=== PATIENT | female | born 1955 | race Hispanic/Latino ===

== ENCOUNTER 2018-04-30 12:47 | Emergency (ER) | payer MEDICAID, OTHER | END 2018-04-30 15:18 | disposition left against medical advice (07) | LOC: EDH 12:47 ==

== ENCOUNTER 2020-08-12 21:21 | Inpatient (IN) | payer OTHER ==
[~2020-08-12] VITALS: Ht 167.6 cm; Wt 74.8 kg
[2020-08-12] MEDS ORDERED: ONDANSETRON 4MG INJ ONE (21:41)
[2020-08-12] MEDS ORDERED: 0.9%NACL 1000ML 1,000 ML IV ONE (21:41)
[2020-08-12] MEDS ORDERED: KETOROLAC 30MG VIAL (30MG/ML) ONE (21:41)
[2020-08-12 21:45] LABS: BASOPHILS % (AUTO) 0.2 % (0.0-5.0); EOSINOPHILS % (AUTO) 2.5 % (0.0-8.0); LYMPHOCYTES % (AUTO) 16.5 % (21.0-51.0); MEAN CORPUSCULAR HEMOGLOBIN 31.6 pg (27.0-33.0); MEAN CORPUSCULAR HGB CONC 33.2 g/dL (32.0-36.0); MEAN CORPUSCULAR VOLUME 95.3 fL (79-99); MONOCYTES % (AUTO) 6.3 % (3.0-13.0); NEUTROPHILS % (AUTO) 74.3 % (40.0-77.0); PLATELET COUNT (AUTO) 280 K/uL (130-400); RED CELL DISTRIBUTION WIDTH 12.8 % (11.0-15.5); WHITE BLOOD COUNT (AUTO) 12.2 K/uL (4.8-10.8)
[2020-08-12 21:48] LABS: APPEARANCE,URINE Cloudy (CLEAR); BILIRUBIN,URINE Negative (NEGATIVE); COLOR,URINE Yellow (YELLOW); GLUCOSE, URINE (UA) Negative (NEGATIVE); KETONES,URINE Negative (NEGATIVE); LEUKOCYTE ESTERASE ,URINE Large (NEGATIVE); NITRATE,URINE Negative (NEGATIVE); OCCULT BLOOD,URINE Negative (NEGATIVE); PH,URINE 7.5 (5.0-8.0); PROTEIN,URINE Negative (NEGATIVE)
[2020-08-12 21:56] LABS: CREATININE 1.1 mg/dL (0.5-1.5); POTASSIUM 3.8 mmol/L (3.5-5.1)
[2020-08-12 22:02] LABS: ALBUMIN 4.1 g/dL (3.5-5.0); BILIRUBIN,TOTAL 0.6 mg/dL (0.2-1.0); TOTAL PROTEIN, SERUM 8.6 g/dL (6.0-8.3)
[2020-08-12 22:08] LABS: BACTERIA,URINE Moderate /HPF (None Seen)
[2020-08-12 22:09] LABS: MUCUS,URINE Few LPF (None Seen); SQUAMOUS EPITHELIAL CELL,UR Moderate /HPF (0-2)
[2020-08-12] MEDS ORDERED: ZOSYN 3.375GM+NS 50ML 50 ML IV ONE (22:30)
[2020-08-12] MEDS: LACTATED RINGERS 1000ML 1,000 ML IV SCH (23:45)
[2020-08-13] MEDS ORDERED: ZOLPIDEM TARTRATE 5 MG TAB PO PRN
[2020-08-13] MEDS ORDERED: ONDANSETRON 4MG INJ IV PRN
[2020-08-13] MEDS: CEFTRIAXONE 1G VIAL IVP SCH
[2020-08-13] MEDS ORDERED: MAG/ALUM/SIMETH 30 ML UDCUP PO PRN
[2020-08-13] MEDS ORDERED: DiphenhydrAMINE HCL 50 MG/ML VIAL IV PRN
[2020-08-13] MEDS ORDERED: NITROGLYCERIN 0.4 MG SL TAB SL PRN
[2020-08-13] MEDS ORDERED: DIPHENHYDRAMINE HCL 25 MG CAPSULE PO PRN
[2020-08-13] MEDS ORDERED: ACETAMINOPHEN 325 MG TAB PO PRN ×2
[2020-08-13] MEDS ORDERED: MORPHINE 2 MG SYG IV PRN
[2020-08-13] MEDS ORDERED: CEFTRIAXONE 1G VIAL ONE (00:09)
[2020-08-13 01:20] LABS: HEMOGLOBIN A1C 6.7 % (4.0-6.0)
[2020-08-13 02:20] VITALS: BP 167/90
[2020-08-13] MEDS: HYDROMORPHONE 1 MG INJ IV PRN ×2 (03:37→12:15)
[2020-08-13 03:44] LABS: BASOPHILS % (AUTO) 0.3 % (0.0-5.0); HEMATOCRIT 35.9 % (36-48); LYMPHOCYTES % (AUTO) 17.5 % (21.0-51.0); MEAN CORPUSCULAR HEMOGLOBIN 32.3 pg (27.0-33.0); NEUTROPHILS % (AUTO) 70.9 % (40.0-77.0); PLATELET COUNT (AUTO) 231 K/uL (130-400); RED BLOOD CELL COUNT(AUTO) 3.78 MIL/uL (4.00-5.50); RED CELL DISTRIBUTION WIDTH 12.9 % (11.0-15.5); WHITE BLOOD COUNT (AUTO) 8.7 K/uL (4.8-10.8)
[2020-08-13] MEDS: LACTATED RINGERS 1000ML 1,000 ML IV SCH ×2 (03:45→17:51)
[2020-08-13 03:58] VITALS: BP 139/78
[2020-08-13 04:11] LABS: ALBUMIN 3.3 g/dL (3.5-5.0); BILIRUBIN,TOTAL 0.6 mg/dL (0.2-1.0); POTASSIUM 3.9 mmol/L (3.5-5.1); TOTAL PROTEIN, SERUM 7.1 g/dL (6.0-8.3)
[2020-08-13 08:48] VITALS: BP 133/78
[2020-08-13] MEDS: FAMOTIDINE 20MG VIAL IV SCH ×2 (09:25→19:51)
[2020-08-13] MEDS: ENOXAPARIN SODIUM 30 MG/0.3 ML SQ SCH (09:25)
[2020-08-13 12:10] VITALS: BP 135/74
[2020-08-13 15:59] LABS: CHOLESTEROL 135 mg/dL (<200); HDL CHOLESTEROL 38 mg/dL (35-85); LDL DIRECT 81 mg/dL (0-99); TRIGLYCERIDES 135 mg/dL (30-200)
[2020-08-13 16:23] VITALS: BP 138/81
[2020-08-13] MEDS ORDERED: HYDROMORPHONE 0.5 MG SYG (0.5MG/0.5ML) ONE (19:45)
[2020-08-13 20:00] VITALS: BP 146/81
[2020-08-14] VITALS: BP 141/77
[2020-08-14] MEDS: CEFTRIAXONE 1G VIAL IVP SCH ×2 (03:16→23:39)
[2020-08-14] MEDS: LACTATED RINGERS 1000ML 1,000 ML IV SCH ×4 (03:16→23:39)
[2020-08-14 04:00] VITALS: BP 155/76
[2020-08-14 05:09] LABS: BASOPHILS % (AUTO) 0.4 % (0.0-5.0); EOSINOPHILS % (AUTO) 4.3 % (0.0-8.0); HEMATOCRIT 36.5 % (36-48); LYMPHOCYTES % (AUTO) 24.9 % (21.0-51.0); MEAN CORPUSCULAR HGB CONC 33.4 g/dL (32.0-36.0); MEAN CORPUSCULAR VOLUME 95.8 fL (79-99); MONOCYTES % (AUTO) 6.6 % (3.0-13.0); NEUTROPHILS % (AUTO) 63.5 % (40.0-77.0); PLATELET COUNT (AUTO) 226 K/uL (130-400); RED BLOOD CELL COUNT(AUTO) 3.81 MIL/uL (4.00-5.50); RED CELL DISTRIBUTION WIDTH 12.7 % (11.0-15.5)
[2020-08-14 05:46] LABS: ALBUMIN 3.2 g/dL (3.5-5.0); BILIRUBIN,TOTAL 0.4 mg/dL (0.2-1.0); CREATININE 0.9 mg/dL (0.5-1.5); POTASSIUM 3.8 mmol/L (3.5-5.1); TOTAL PROTEIN, SERUM 7.2 g/dL (6.0-8.3)
[2020-08-14 08:14] LABS: HEPATITIS A ANTIBODY IGM Negative (Negative); HEPATITIS B CORE IGM Negative (Negative); HEPATITIS Bs ANTIGEN SCREEN P Negative (Negative)
[2020-08-14 09:03] VITALS: BP 163/78
[2020-08-14] MEDS: FAMOTIDINE 20MG VIAL IV SCH ×2 (10:55→22:08)
[2020-08-14] MEDS: ENOXAPARIN SODIUM 30 MG/0.3 ML SQ SCH (10:55)
[2020-08-14 13:51] VITALS: BP 157/68
[2020-08-14 16:38] VITALS: BP 159/79
[2020-08-14 20:09] VITALS: BP 140/73
[2020-08-15] VITALS (7 sets, daily range): BP systolic 136–161; BP diastolic 65–84
[2020-08-15 05:56] LABS: BASOPHILS % (AUTO) 0.4 % (0.0-5.0); EOSINOPHILS % (AUTO) 7.1 % (0.0-8.0); HEMATOCRIT 38.3 % (36-48); LYMPHOCYTES % (AUTO) 25.4 % (21.0-51.0); MEAN CORPUSCULAR HEMOGLOBIN 31.6 pg (27.0-33.0); MEAN CORPUSCULAR HGB CONC 33.2 g/dL (32.0-36.0); MEAN CORPUSCULAR VOLUME 95.3 fL (79-99); MONOCYTES % (AUTO) 7.9 % (3.0-13.0); NEUTROPHILS % (AUTO) 58.9 % (40.0-77.0); PLATELET COUNT (AUTO) 227 K/uL (130-400); RED BLOOD CELL COUNT(AUTO) 4.02 MIL/uL (4.00-5.50); RED CELL DISTRIBUTION WIDTH 12.7 % (11.0-15.5); WHITE BLOOD COUNT (AUTO) 7.9 K/uL (4.8-10.8)
[2020-08-15 06:21] LABS: ALBUMIN 3.2 g/dL (3.5-5.0); BILIRUBIN,TOTAL 0.3 mg/dL (0.2-1.0); CREATININE 0.9 mg/dL (0.5-1.5); POTASSIUM 3.9 mmol/L (3.5-5.1); TOTAL PROTEIN, SERUM 7.2 g/dL (6.0-8.3)
[2020-08-15] MEDS: LACTATED RINGERS 1000ML 1,000 ML IV SCH ×2 (06:37→09:50)
[2020-08-15] MEDS: ENOXAPARIN SODIUM 30 MG/0.3 ML SQ SCH (09:50)
[2020-08-15] MEDS: FAMOTIDINE 20MG VIAL IV SCH ×2 (09:50→21:38)
[2020-08-16] MEDS: CEFTRIAXONE 1G VIAL IVP SCH (00:11)
[2020-08-16] MEDS: LACTATED RINGERS 1000ML 1,000 ML IV SCH ×3 (00:12→11:55)
[2020-08-16 04:28] VITALS: BP 142/69
[2020-08-16 06:00] LABS: BASOPHILS % (AUTO) 0.4 % (0.0-5.0); EOSINOPHILS % (AUTO) 8.7 % (0.0-8.0); HEMATOCRIT 39.4 % (36-48); LYMPHOCYTES % (AUTO) 26.4 % (21.0-51.0); MEAN CORPUSCULAR HEMOGLOBIN 31.6 pg (27.0-33.0); MEAN CORPUSCULAR HGB CONC 33.2 g/dL (32.0-36.0); MEAN CORPUSCULAR VOLUME 95.2 fL (79-99); MONOCYTES % (AUTO) 8.4 % (3.0-13.0); NEUTROPHILS % (AUTO) 55.8 % (40.0-77.0); PLATELET COUNT (AUTO) 242 K/uL (130-400); RED BLOOD CELL COUNT(AUTO) 4.14 MIL/uL (4.00-5.50); RED CELL DISTRIBUTION WIDTH 12.7 % (11.0-15.5); WHITE BLOOD COUNT (AUTO) 7.1 K/uL (4.8-10.8)
[2020-08-16 06:40] LABS: ALBUMIN 3.3 g/dL (3.5-5.0); BILIRUBIN,TOTAL 0.3 mg/dL (0.2-1.0); CREATININE 0.9 mg/dL (0.5-1.5); POTASSIUM 3.7 mmol/L (3.5-5.1); TOTAL PROTEIN, SERUM 7.5 g/dL (6.0-8.3)
[2020-08-16 08:00] VITALS: BP 153/87
[2020-08-16] MEDS: FAMOTIDINE 20MG VIAL IV SCH ×2 (09:45→21:48)
[2020-08-16] MEDS: POLYETHYLENE GLYCOL 3350 17 GM POWD.PACK PO SCH (09:45)
[2020-08-16] MEDS: ENOXAPARIN SODIUM 30 MG/0.3 ML SQ SCH (09:45)
[2020-08-16 12:00] VITALS: BP 155/90
[2020-08-16 16:00] VITALS: BP 145/87
[2020-08-16 19:56] VITALS: BP 158/88
[2020-08-16 23:26] VITALS: BP 165/78
[2020-08-17] MEDS: CEFTRIAXONE 1G VIAL IVP SCH (00:02)
[2020-08-17] MEDS: LACTATED RINGERS 1000ML 1,000 ML IV SCH ×2 (00:02→07:30)
[2020-08-17 03:59] VITALS: BP 133/75
[2020-08-17] MEDS: FAMOTIDINE 20MG VIAL IV SCH (08:29)
[2020-08-17 08:30] VITALS: BP 172/74
[2020-08-17] MEDS: POLYETHYLENE GLYCOL 3350 17 GM POWD.PACK PO SCH (08:30)
[2020-08-17] MEDS: ENOXAPARIN SODIUM 30 MG/0.3 ML SQ SCH (08:30)
[2020-08-17 12:37] VITALS: BP 140/51
== END 2020-08-17 16:00 | disposition home or self-care (01) | DRG 439 ==
LOC: EDH 21:21 → EDHIP 23:52 → 3BH 08-13 02:26
PROVIDERS: ADMIT Family Medicine; ATTEND Family Medicine
DX: K85.90 Acute pancreatitis without necrosis or infection, unspecified (principal); B17.9 Acute viral hepatitis, unspecified; N39.0 Urinary tract infection, site not specified; N17.9 Acute kidney failure, unspecified; E87.1 Hypo-osmolality and hyponatremia; E86.0 Dehydration; I10 Essential (primary) hypertension; Z90.49 Acquired absence of other specified parts of digestive tract; K57.90 Diverticulosis of intestine, part unspecified, without perforation or abscess without bleeding; Z20.822 Contact with and (suspected) exposure to COVID-19; Z88.2 Allergy status to sulfonamides; Z88.5 Allergy status to narcotic agent
CPT/HCPCS: 36415; 71045; 74176; 74181; 80053; 80061; 80074; 81001; 82150; 82948; 83036; 83690; 84484; 85025; 87088; 87426; 93005; 99291; G0378; J0696; J1170; J1650; J1885; J2405; J2543; J3490; J7030; J7120; U0003

== ENCOUNTER → 2020-09-29 | Outpatient (CLI) | payer OTHER | END | disposition home or self-care (01) | LOC: RAH 09:26 | PROVIDERS: ATTEND Internal Medicine Gastroenterology | DX: K21.9 Gastro-esophageal reflux disease without esophagitis (principal); K44.9 Diaphragmatic hernia without obstruction or gangrene | CPT/HCPCS: 74240 ==

== ENCOUNTER 2021-03-23 17:41 | Emergency (ER) | payer OTHER, MEDICAID ==
[~2021-03-23] VITALS: Ht 165.1 cm; Wt 59.9 kg
[2021-03-23 18:00] VITALS: BP 151/78
[2021-03-23] MEDS ORDERED: ALBUTEROL INHALER 90MCG/INH IH PRN (18:30)
[2021-03-23] MEDS ORDERED: GUAIFENESIN-DM 200/20 MG 10 ML PO ONE (18:30)
[2021-03-23] MEDS ORDERED: AMOX/CLAV 875/125MG TAB PO ONE ×2 (18:30→18:37)
[2021-03-23] MEDS ORDERED: GUAIFENESIN-DM 200/20 MG 10 ML ONE (18:37)
[2021-03-23] MEDS ORDERED: ALBUTEROL INHALER 90MCG/INH IH ONE (18:37)
[2021-03-23 18:45] LABS: APPEARANCE,URINE Clear (CLEAR); BILIRUBIN,URINE Negative (NEGATIVE); COLOR,URINE Yellow (YELLOW); GLUCOSE, URINE (UA) Negative (NEGATIVE); KETONES,URINE Negative (NEGATIVE); LEUKOCYTE ESTERASE ,URINE Moderate (NEGATIVE); NITRATE,URINE Negative (NEGATIVE); OCCULT BLOOD,URINE Negative (NEGATIVE); PH,URINE 7.5 (5.0-8.0); PROTEIN,URINE Negative (NEGATIVE)
[2021-03-23 19:00] LABS: BACTERIA,URINE Few /HPF (None Seen); MUCUS,URINE Few LPF (None Seen); RBC,URINE 0-1 /HPF (0-1); SQUAMOUS EPITHELIAL CELL,UR Few /HPF (0-2)
[2021-03-23] MEDS ORDERED: ALBUHFA IH (19:19)
[2021-03-23] MEDS ORDERED: AMOX-429 PO (19:19)
[2021-03-23] MEDS ORDERED: CEFTRIAXONE 1G VIAL IM ONE (19:30)
== END 2021-03-23 20:36 | disposition home or self-care (01) ==
LOC: EDH 17:41
DX: N39.0 Urinary tract infection, site not specified (principal); J40 Bronchitis, not specified as acute or chronic; Z20.822 Contact with and (suspected) exposure to COVID-19; E11.9 Type 2 diabetes mellitus without complications; I10 Essential (primary) hypertension; Z88.5 Allergy status to narcotic agent; Z79.899 Other long term (current) drug therapy
CPT/HCPCS: 71045; 81001; 87088; 87635; 96372; 99284; C9803; J0696

== ENCOUNTER 2021-04-02 17:59 | Emergency (ER) | payer OTHER, MEDICARE ==
[~2021-04-02] VITALS: Ht 165.1 cm; Wt 59.9 kg
[~2021-04-02 17:59] MED LIST: ALBUHFA IH; AMOX-429 PO
[2021-04-02 19:41] LABS: BASOPHILS % (AUTO) 0.1 % (0.0-5.0); EOSINOPHILS % (AUTO) 6.2 % (0.0-8.0); HEMATOCRIT 38.8 % (36-48); LYMPHOCYTES % (AUTO) 29.1 % (21.0-51.0); MEAN CORPUSCULAR HEMOGLOBIN 31.8 pg (27.0-33.0); MEAN CORPUSCULAR HGB CONC 33.5 g/dL (32.0-36.0); MEAN CORPUSCULAR VOLUME 94.9 fL (79-99); MONOCYTES % (AUTO) 8.4 % (3.0-13.0); NEUTROPHILS % (AUTO) 55.7 % (40.0-77.0); PLATELET COUNT (AUTO) 222 K/uL (130-400); RED BLOOD CELL COUNT(AUTO) 4.09 MIL/uL (4.00-5.50); RED CELL DISTRIBUTION WIDTH 13.1 % (11.0-15.5); WHITE BLOOD COUNT (AUTO) 7.6 K/uL (4.8-10.8)
[2021-04-02 19:48] VITALS: BP 131/81
[2021-04-02 20:06] LABS: CREATININE 0.8 mg/dL (0.5-1.5); POTASSIUM 3.6 mmol/L (3.5-5.1)
[2021-04-02 20:12] LABS: ALBUMIN 3.4 g/dL (3.5-5.0); BILIRUBIN,TOTAL 0.4 mg/dL (0.2-1.0); TOTAL PROTEIN, SERUM 7.6 g/dL (6.0-8.3)
[2021-04-02] MEDS ORDERED: D-ME118S47 PO (21:40)
[2021-04-02] MEDS ORDERED: CETI10CA5 PO (21:40)
[2021-04-02] MEDS ORDERED: GUAIFENESIN/DEXTROMETHORPHAN 1 EACH TAB.SR.12H PO ONE (22:00)
== END 2021-04-02 22:06 | disposition home or self-care (01) ==
LOC: EDH 17:59
DX: R10.9 Unspecified abdominal pain (principal); R05 Cough; R06.02 Shortness of breath; R53.83 Other fatigue; Z20.822 Contact with and (suspected) exposure to COVID-19; Z79.899 Other long term (current) drug therapy; Z88.5 Allergy status to narcotic agent
CPT/HCPCS: 36415; 71045; 80053; 83690; 83880; 85025; 87635; 87804 ×2; 99284; C9803

== ENCOUNTER 2021-07-05 09:38 | Emergency (ER) | payer OTHER, MEDICARE ==
[~2021-07-05] VITALS: Ht 165.1 cm; Wt 59.9 kg
[~2021-07-05 09:38] MED LIST changes: +CETI10CA5 PO; +D-ME118S47 PO
[2021-07-05] MEDS ORDERED: LIDOCAINE HCL 2% VISCOUS 15 ML UDCUP PO ONE (11:00)
[2021-07-05] MEDS ORDERED: PREDNISONE 20 MG TABLET PO ONE (11:00)
[2021-07-05] MEDS ORDERED: MAG/ALUM/SIMETH 30 ML UDCUP PO ONE (11:00)
[2021-07-05] MEDS ORDERED: DIPHENHYDRAMINE HCL 25 MG CAPSULE PO ONE (11:00)
[2021-07-05] MEDS ORDERED: ALBUTEROL 0.083% 2.5 MG/3 ML INH IH ONE (11:00)
[2021-07-05] MEDS ORDERED: ALBU8.5H8 IH (11:51)
[2021-07-05] MEDS ORDERED: NYST15PO4 TP (11:51)
[2021-07-05] MEDS ORDERED: PRED20TA3 PO (11:51)
[2021-07-05] MEDS ORDERED: BENZ-39 PO (11:51)
[2021-07-05 11:57] LABS: APPEARANCE,URINE Cloudy (CLEAR); BILIRUBIN,URINE Negative (NEGATIVE); COLOR,URINE Yellow (YELLOW); GLUCOSE, URINE (UA) Negative (NEGATIVE); KETONES,URINE Negative (NEGATIVE); LEUKOCYTE ESTERASE ,URINE Large (NEGATIVE); NITRATE,URINE Negative (NEGATIVE); OCCULT BLOOD,URINE Negative (NEGATIVE); PH,URINE 5.5 (5.0-8.0); PROTEIN,URINE Trace mg/dL (NEGATIVE)
[2021-07-05 12:17] LABS: BACTERIA,URINE Few /HPF (None Seen); RBC,URINE 0-1 /HPF (0-1); SQUAMOUS EPITHELIAL CELL,UR Rare /HPF (0-2); WBC,URINE 51-100 /HPF (0-1)
[2021-07-05 12:30] VITALS: BP 147/71
== END 2021-07-05 12:29 | disposition home or self-care (01) ==
LOC: EDH 09:38
DX: B37.49 Other urogenital candidiasis (principal); R05.9 Cough, unspecified; N39.3 Stress incontinence (female) (male); I10 Essential (primary) hypertension; J45.909 Unspecified asthma, uncomplicated; Z88.5 Allergy status to narcotic agent; Z79.52 Long term (current) use of systemic steroids; Z79.899 Other long term (current) drug therapy
CPT/HCPCS: 71045; 81001; 87077; 87088; 87186; 99284; Q0163

== ENCOUNTER 2021-07-19 13:03 | Emergency (ER) | payer OTHER, MEDICARE ==
[~2021-07-19] VITALS: Ht 165.1 cm; Wt 59.9 kg
[~2021-07-19 13:03] MED LIST changes: +ALBU8.5H8 IH; +BENZ-39 PO; +NYST15PO4 TP; +PRED20TA3 PO
[2021-07-19] MEDS ORDERED: ONDA4TAB4 PO (15:04)
[2021-07-19] MEDS ORDERED: BUDE90AE IH (15:04)
[2021-07-19] MEDS ORDERED: IBUP-2070 PO (15:04)
[2021-07-19] MEDS ORDERED: D-ME118S47 PO (15:04)
[2021-07-19 15:10] VITALS: BP 133/8
[2021-07-19] MEDS ORDERED: ONDANSETRON ODT 4MG TAB SL ONE (15:30)
[2021-07-19] MEDS ORDERED: ACETAMINOPHEN 500 MG TABLET PO ONE (15:30)
== END 2021-07-19 15:27 | disposition home or self-care (01) ==
LOC: EDH 13:03
DX: U07.1 COVID-19 (principal); I10 Essential (primary) hypertension; J45.909 Unspecified asthma, uncomplicated; Z79.1 Long term (current) use of non-steroidal anti-inflammatories (NSAID); Z79.51 Long term (current) use of inhaled steroids; Z79.52 Long term (current) use of systemic steroids; Z79.899 Other long term (current) drug therapy; Z88.5 Allergy status to narcotic agent
CPT/HCPCS: 87635; 87804 ×2; 99283; C9803

== ENCOUNTER 2021-10-24 16:17 | Emergency (ER) | payer OTHER, MEDICARE ==
[~2021-10-24] VITALS: Ht 157.5 cm; Wt 59.9 kg
[~2021-10-24 16:17] MED LIST changes: +BUDE90AE IH; +IBUP-2070 PO; +ONDA4TAB4 PO
[2021-10-24 16:21] VITALS: BP 142/71
[2021-10-24 17:15] LABS: BASOPHILS % (AUTO) 0.3 % (0.0-5.0); HEMATOCRIT 39.3 % (36-48); LYMPHOCYTES % (AUTO) 23.1 % (21.0-51.0); MEAN CORPUSCULAR HEMOGLOBIN 31.1 pg (27.0-33.0); MEAN CORPUSCULAR HGB CONC 32.6 g/dL (32.0-36.0); MEAN CORPUSCULAR VOLUME 95.4 fL (79-99); MONOCYTES % (AUTO) 6.6 % (3.0-13.0); NEUTROPHILS % (AUTO) 66.5 % (40.0-77.0); PLATELET COUNT (AUTO) 294 K/uL (130-400); RED BLOOD CELL COUNT(AUTO) 4.12 MIL/uL (4.00-5.50); RED CELL DISTRIBUTION WIDTH 12.9 % (11.0-15.5); WHITE BLOOD COUNT (AUTO) 13.1 K/uL (4.8-10.8)
[2021-10-24 17:17] LABS: APPEARANCE,URINE Clear (CLEAR); BILIRUBIN,URINE Negative (NEGATIVE); COLOR,URINE Yellow (YELLOW); GLUCOSE, URINE (UA) Negative (NEGATIVE); KETONES,URINE Negative (NEGATIVE); LEUKOCYTE ESTERASE ,URINE Moderate (NEGATIVE); NITRATE,URINE Negative (NEGATIVE); OCCULT BLOOD,URINE Negative (NEGATIVE); PH,URINE 5.5 (5.0-8.0); PROTEIN,URINE Negative (NEGATIVE); UROBILINOGEN,URINE 0.2 mg/dL (0.2-1.0)
[2021-10-24 17:23] LABS: CREATININE 0.9 mg/dL (0.5-1.5); POTASSIUM 3.8 mmol/L (3.5-5.1)
[2021-10-24 17:28] LABS: ALBUMIN 3.6 g/dL (3.5-5.0); BILIRUBIN,TOTAL 0.3 mg/dL (0.2-1.0); TOTAL PROTEIN, SERUM 8.3 g/dL (6.0-8.3)
[2021-10-24 17:31] LABS: BACTERIA,URINE Few /HPF (None Seen); MUCUS,URINE Rare LPF (None Seen); RBC,URINE 0-1 /HPF (0-1); SQUAMOUS EPITHELIAL CELL,UR 0-2 /HPF (0-2)
[2021-10-24] MEDS ORDERED: CEPH500B PO (18:49)
[2021-10-24] MEDS ORDERED: BENZ-39 PO (18:49)
[2021-10-24] MEDS ORDERED: OMEP20TA20 PO (18:49)
== END 2021-10-24 19:21 | disposition home or self-care (01) ==
LOC: EDH 16:17
DX: R05.3 Chronic cough (principal); N39.0 Urinary tract infection, site not specified; J45.909 Unspecified asthma, uncomplicated; I10 Essential (primary) hypertension; Z88.5 Allergy status to narcotic agent; Z79.899 Other long term (current) drug therapy; Z98.890 Other specified postprocedural states
CPT/HCPCS: 36415; 71045; 80053; 81001; 85025; 87088

== ENCOUNTER 2022-08-08 08:55 | Emergency (ER) | payer OTHER, MEDICARE ==
[~2022-08-08] VITALS: Ht 162.6 cm; Wt 59.0 kg
[~2022-08-08 08:55] MED LIST changes: +CEPH500B PO; +OMEP20TA20 PO
[2022-08-08 08:57] VITALS: BP 142/92
[2022-08-08 09:25] LABS: APPEARANCE,URINE CLOUDY (CLEAR); BILIRUBIN,URINE NEGATIVE (NEGATIVE); COLOR,URINE LIGHT-YELLOW (YELLOW); GLUCOSE, URINE (UA) NEGATIVE (NEGATIVE); KETONES,URINE NEGATIVE (NEGATIVE); LEUKOCYTE ESTERASE ,URINE 500 Leu/uL (NEGATIVE); NITRATE,URINE NEGATIVE (NEGATIVE); OCCULT BLOOD,URINE NEGATIVE (NEGATIVE); PROTEIN,URINE NEGATIVE (NEGATIVE); UROBILINOGEN,URINE 0.2 mg/dL (0.2-1.0)
[2022-08-08 09:30] LABS: BACTERIA,URINE RARE /HPF (None Seen); MUCUS,URINE RARE LPF (None Seen); SQUAMOUS EPITHELIAL CELL,UR RARE /HPF (0-2)
[2022-08-08] MEDS ORDERED: KETOROLAC 60 MG VIAL (30MG/ML) IM ONE (09:30)
[2022-08-08] MEDS ORDERED: CEPH500C2 PO (10:15)
[2022-08-08] MEDS ORDERED: LIDOCAINE HCL 1% 20 ML VIAL ONE (10:21)
[2022-08-08] MEDS ORDERED: CEFTRIAXONE 1G VIAL IM SCH (10:30)
== END 2022-08-08 10:29 | disposition home or self-care (01) ==
LOC: EDH 08:55
DX: N39.0 Urinary tract infection, site not specified (principal); J45.909 Unspecified asthma, uncomplicated; I10 Essential (primary) hypertension; Z79.1 Long term (current) use of non-steroidal anti-inflammatories (NSAID); Z79.51 Long term (current) use of inhaled steroids; Z79.52 Long term (current) use of systemic steroids; Z88.5 Allergy status to narcotic agent
CPT/HCPCS: 99284; 87088; 81001; 96372 ×2; J0696; J1885

== ENCOUNTER 2023-01-22 12:44 | Emergency (ER) | payer OTHER, MEDICARE ==
[~2023-01-22] VITALS: Ht 165.1 cm; Wt 13.6 kg
[~2023-01-22 12:44] MED LIST changes: +CEPH500C2 PO
[2023-01-22 12:46] VITALS: BP 165/89
[2023-01-22 13:44] LABS: APPEARANCE,URINE CLEAR (CLEAR); BILIRUBIN,URINE NEGATIVE (NEGATIVE); COLOR,URINE LIGHT-YELLOW (YELLOW); GLUCOSE, URINE (UA) NEGATIVE (NEGATIVE); KETONES,URINE NEGATIVE (NEGATIVE); LEUKOCYTE ESTERASE ,URINE 25 Leu/uL (NEGATIVE); NITRATE,URINE NEGATIVE (NEGATIVE); OCCULT BLOOD,URINE NEGATIVE (NEGATIVE); PROTEIN,URINE NEGATIVE (NEGATIVE); UROBILINOGEN,URINE 0.2 mg/dL (0.2-1.0)
[2023-01-22 13:47] LABS: MUCUS,URINE RARE LPF (None Seen); SQUAMOUS EPITHELIAL CELL,UR RARE /HPF (0-2)
[2023-01-22] MEDS ORDERED: CLOT45CR62 VG (13:54)
[2023-01-22] MEDS ORDERED: FLUC150T PO (13:54)
== END 2023-01-22 14:20 | disposition home or self-care (01) ==
LOC: EDH 12:44
DX: B37.49 Other urogenital candidiasis (principal); Z79.51 Long term (current) use of inhaled steroids; Z79.52 Long term (current) use of systemic steroids; Z79.899 Other long term (current) drug therapy; Z88.5 Allergy status to narcotic agent
CPT/HCPCS: 81001

== ENCOUNTER 2023-11-17 14:55 | Emergency (ER) | payer OTHER, MEDICARE ==
[~2023-11-17] VITALS: Ht 165.1 cm; Wt 61.7 kg
[~2023-11-17 14:55] MED LIST changes: +BROM118S48 PO; +CLOT45CR62 VG; -D-ME118S47 PO; +FLUC150T PO
[2023-11-17 16:00] LABS: BASOPHILS # (AUTO) 0.03 K/uL (0.00-0.20); BASOPHILS % (AUTO) 0.3 % (0.0-5.0); EOSINOPHILS # (AUTO) 0.36 K/uL (0.00-0.70); EOSINOPHILS % (AUTO) 3.2 % (0.0-8.0); HEMATOCRIT 39.3 % (36-48); IMMATURE GRANULOCYTE ABSOLUTE 0.06 K/uL (0-1); LYMPHOCYTES # (AUTO) 2.2 K/uL (1.0-4.8); LYMPHOCYTES % (AUTO) 19.3 % (21.0-51.0); MEAN CORPUSCULAR HEMOGLOBIN 32.4 pg (27.0-33.0); MEAN CORPUSCULAR HGB CONC 34.1 g/dL (32.0-36.0); MEAN CORPUSCULAR VOLUME 95.2 fL (79-99); MONOCYTES # (AUTO) 0.7 K/uL (0.1-1.0); MONOCYTES % (AUTO) 6.5 % (3.0-13.0); NEUTROPHILS # (AUTO) 7.9 K/uL (1.8-7.7); NEUTROPHILS % (AUTO) 70.2 % (40.0-77.0); PLATELET COUNT (AUTO) 254 K/uL (130-400); RED BLOOD CELL COUNT(AUTO) 4.13 MIL/uL (4.00-5.50); WHITE BLOOD COUNT (AUTO) 11.2 K/uL (4.8-10.8)
[2023-11-17 16:10] LABS: APPEARANCE,URINE CLEAR (CLEAR); BILIRUBIN,URINE NEGATIVE (NEGATIVE); COLOR,URINE LIGHT-YELLOW (YELLOW); GLUCOSE, URINE (UA) 500 mg/dL (NEGATIVE); KETONES,URINE NEGATIVE (NEGATIVE); LEUKOCYTE ESTERASE ,URINE 500 Leu/uL (NEGATIVE); NITRATE,URINE NEGATIVE (NEGATIVE); OCCULT BLOOD,URINE NEGATIVE (NEGATIVE); PROTEIN,URINE NEGATIVE (NEGATIVE); UROBILINOGEN,URINE 0.2 mg/dL (0.2-1.0)
[2023-11-17 16:11] LABS: POTASSIUM 3.7 mmol/L (3.5-5.1)
[2023-11-17 16:22] LABS: ADD UA MICROSCOPIC YES
[2023-11-17 16:22] LABS: ALBUMIN 3.6 g/dL (3.5-5.0); BILIRUBIN,TOTAL 0.5 mg/dL (0.2-1.0); TOTAL PROTEIN, SERUM 7.6 g/dL (6.0-8.3)
[2023-11-17 16:38] LABS: BACTERIA,URINE MOD /HPF (None Seen); MUCUS,URINE RARE LPF (None Seen); RENAL EPITHELIAL CELLS,URINE RARE /HPF (None Seen); SQUAMOUS EPITHELIAL CELL,UR FEW /HPF (0-2); WBC,URINE 51-100 /HPF (0-1)
[2023-11-17] MEDS ORDERED: IOHEXOL 350 MG/ML 100ML INFUS..BTL IV ONE (16:55)
[2023-11-17] MEDS ORDERED: OMEP40CA21 PO (18:19)
[2023-11-17 19:10] VITALS: BP 116/72; PULSE 68; RESP 18; O2SAT 97
== END 2023-11-17 19:34 | disposition home or self-care (01) ==
LOC: EDH 14:55
DX: K29.70 Gastritis, unspecified, without bleeding (principal); Z79.51 Long term (current) use of inhaled steroids; Z79.52 Long term (current) use of systemic steroids; Z79.899 Other long term (current) drug therapy; Z88.5 Allergy status to narcotic agent
CPT/HCPCS: 99285; 74177; 82550; 84484; 80053; 83690; 85025; 87077; 87088; 87186; 81001; 36415; Q9967

== ENCOUNTER 2024-06-24 08:42 | Emergency (ER) | payer MEDICARE ==
[~2024-06-24] VITALS: Ht 165.1 cm; Wt 59.0 kg
[~2024-06-24 08:42] MED LIST changes: -ALBUHFA IH; -AMOX-429 PO; +ASPI-1005 PO; +ATOR20TA65 PO; -BROM118S48 PO; -BUDE90AE IH; +BUDE90AE3 IH; -CEPH500B PO; -CEPH500C2 PO; -CETI10CA5 PO; +CLOP-31 PO; -FLUC150T PO; -IBUP-2070 PO; -NYST15PO4 TP; -OMEP20TA20 PO; +OMEP40CA21 PO; -ONDA4TAB4 PO; -PRED20TA3 PO
[2024-06-24 08:43] VITALS: BP 169/78; PULSE 90; RESP 16; TEMP 97.9
--- NOTE | 2024-06-24 08:59 | NUR ---
PT JUST NOW PLACED IN MY HALLWAY D
[2024-06-24] MEDS ORDERED: AMOX500T2 PO (09:18)
--- NOTE | 2024-06-24 09:19 | ERN ---
ED Note History of Present Illness Stated Complaint: RIGHT EAR PAIN Chief Complaint: Earache Time Seen by MD: 08:50 Dictation: Patient is a 69-year-old female with a history type 2 diabetes, GERD, hypertension, arthritis and sinusitis who presents to the ED for right ear pain. She states her ear pain started on Monday and worsened on Monday after stress due to a in the family. Patient denies any fevers, chills, nausea, vomiting, cough or chest pain. Patient denies any difficulty swallowing or sore throat Patient admits to having a slight frontal right-sided headache. She has been taking ibuprofen that is helped relieve ear pain and headache. Allergies: Coded Allergies: codeine (Verified Allergy, Unknown, 08/13/20) Uncoded Allergies: CODEINE SULFATE (Adverse Reaction, Intermediate, UPSET STOMACH, DIZZINESS, 08/13/20) Home Meds Active Scripts Amoxicillin (Amoxicillin) 500 Mg Tablet, 1 TAB PO TID for 10 Days, #30 TAB 0 Refills Prov:JOSELITO MCCLAIN MD 06/24/24 Aspirin (ASPIRIN 81MG CHEW TAB) 81 Mg Tab.chew, 81 MG PO DAILY, #30 TAB.CHEW 0 Refills Prov:FLORIAN SANDERS AGPCSANA 12/15/23 Atorvastatin Calcium (Atorvastatin Calcium) 20 Mg Tablet, 20 MG PO HS, #30 TAB 0 Refills Prov:FLORIAN SANDERS 12/15/23 Clopidogrel Bisulfate (Plavix) 75 Mg Tablet, 75 MG PO DAILY, #30 TAB 0 Refills Prov:FLORIAN SANDERS AGSANA 12/15/23 Omeprazole (Omeprazole) 40 Mg Capsule.dr, 40 MG PO DAILY for 30 Days, #30 CAP Prov:JESENIA HUBER DO 11/17/23 Clotrimazole (Clotrimazole) 45 Gm Cream.appl, 45 GM VG BID for 7 Days, #1 TUBE Prov:CORINA RICH NP 01/22/23 Benzonatate (Tessalon Perles) 100 Mg Cap, 100 MG PO TID, #15 CAP Prov:ROBERTO HENRY 10/24/21 Budesonide (Pulmicort Flexhaler) 90 Mcg Aer.pow.ba, 90 MCG IH BID for 7 Days, #1 INHALER Prov:GIO GLOVER MD 07/19/21 Albuterol Sulfate (Proair Hfa) 8.5 Gm Hfa.aer.ad, 2 PUFF IH Q4HPRN, #1 INHALER 0 Refills Prov:SUMMERLAKEISHA ART MD 07/05/21 Past Medical History Past Medical History: Arthritis, Diabetes-Type II, GERD, Hypertension, Migraines, Sinusitis Additional Past Medical Hx: PRE DM Surgical History: None Surgical History Other: SINUS, HEADACHES Family History: Negative Social History: Negative, Lives with family History: Not Applicable Review of System Dictation Constitutional-no chills, weight loss/gain, fever Eyes-no injury, pain, redness and discharge ENT-no injury, swelling. Pain in right ear. Cardiovascular no chest pain, palpitations, edema Respiratory no shortness of breath, cough, wheezing Abdomen/GI-no abdominal pain, diarrhea, constipation, vomiting, nausea Back no injury and pain Genitourinary no injury, bleeding and discharge Musculoskeletal/extremities no injury, deformity Skin no rash, discoloration Neuro-no weakness, numbness, tingling, seizures, tremors. Right frontal headache Psych-no suicidal ideation, homicidal ideation, hallucinations, depression, anxiety, memory loss Initial Vital Sign VS Vital Signs Date Time Temp Pulse Resp B/P (MAP) Pulse Ox O2 Delivery O2 Flow Rate FiO2 06/24/24 08:43 97.9 90 16 169/78 99 Room Air 0 Physical Exam Dictation General-patient is awake alert and oriented Head/neck-normocephalic, atraumatic Ears- TM hyperemic Eyes-PERRL, EOMI, vision at baseline Neck-trachea midline, supple, no nuchal rigidity Cardiovascular-RRR, normal S1/S2, no MRG is, no JVD Respiratory-no distress, wheezing, rales, rhonchi Abdomen-no tenderness, guarding, soft, nondistended Skin warm, dry, normal turgor, no rash Musculoskeletal/extremities pulses equal, no cyanosis Neuro-COA X 4, GCS 15, strength 5/5, CN 2-12 intact Psych-normal behavior, mood and affect normal ED Course ED Course Vital Signs Date Time Temp Pulse Resp B/P (MAP) Pulse Ox O2 Delivery O2 Flow Rate FiO2 06/24/24 08:43 97.9 90 16 169/78 99 Room Air 0 Medical Decision Making MDM MDM INITIAL IMPRESSION Initial history and physical concerning for otitis media Contributing medical problems: I have reviewed the triage nursing notes and vital signs. Initial plan: DATA REVIEW I have reviewed additional NN, repeat VS, and monitoring where indicated. Heart rate, blood pressure, and O2 saturation are acceptable. ED COURSE Interventions: None Reassessment: DISPOSITION Final diagnostic impression: Otitis media I discussed my findings, clinical impression and treatment recommendations with the patient. My final plan for disposition was made based upon -mild risk of complications and potential morbidity of the patient's condition. -Discussion with the patient regarding management options. Patient will be discharged on antibiotic treatment DX & DISP Disposition: Discharge Departure Impression: Primary Impression: Otitis media Additional Impression: Ear pain, right Condition: Stable Scripts Amoxicillin (Amoxicillin) 500 Mg Tablet 1 TAB PO TID for 10 Days, #30 TAB 0 Refills Prov: JOSELITO MCCLAIN MD 06/24/24 Additional Instructions: Take antibiotics as directed. Take [id number] pain medication like acetaminophen or ibuprofen as directed. Apply a warm, moist. Washcloth to your ears rest and avoid taking slight swallow your still in pain. Contact your doctor if you experience new or increasing ear pain, new or increasing pus or blood draining from the ear, a fever with a stiff neck or severe headache, new symptoms such as hearing problems. FOLLOW-UP WITH PRIMARY CARE PROVIDER IN 1 TO 2 DAYS. TAKE MEDICATIONS DIRECTED HERE IN THE EMERGENCY ROOM. OKAY TO CONTINUE HOME MEDICATIONS UNLESS OTHERWISE DISCUSSED DURING YOUR VISIT IN THE EMERGENCY ROOM TODAY. RETURN TO YOUR NEAREST EMERGENCY ROOM IF SYMPTOMS WORSEN OR IF THERE IS NO IMPROVEMENT. CALL 911 IF YOU NEED IMMEDIATE ASSISTANCE. TAKE TYLENOL [id number] NEEDED AND IF NO CONTRAINDICATIONS ARE PRESENT. INCREASE ORAL HYDRATION. A WOUND CULTURE OR URINE CULTURE WAS ORDERED HERE IN THE EMERGENCY ROOM DEPARTMENT PLEASE FOLLOW-UP WITH PRIMARY CARE PROVIDER AND ADVISE THEM TO GET REPEAT PORTS FROM OUR FACILITY. IF YOU HAD ANY ANGELA WRAP/SPLINTS THAT WERE APPLIED HERE, PLEASE DO NOT REMOVE THEM UNTIL YOU SEE YOUR PRIMARY CARE OR SPECIALTY. Referrals: SHIRLEY WALDRON MD (PCP) Time of Disposition: 09:14 I have reviewed I have reviewed the case I was present and participated in the care of this patient alongside the resident physician. I have reviewed and personally made and improve the management plan that is documented in the note by myself or the resident physician. I acknowledge full responsibility for the patient's management plan. I have examined patient JOSELITO MCCLAIN MD Jun 24, 2024 09:19 MIKE JUDD MD Jun 24, 2024 18:15
== END 2024-06-24 09:41 | disposition home or self-care (01) ==
LOC: EDH 08:42
DX: H66.91 Otitis media, unspecified, right ear (principal); H92.01 Otalgia, right ear; E11.9 Type 2 diabetes mellitus without complications; I10 Essential (primary) hypertension; K21.9 Gastro-esophageal reflux disease without esophagitis; M19.90 Unspecified osteoarthritis, unspecified site; Z79.02 Long term (current) use of antithrombotics/antiplatelets; Z79.51 Long term (current) use of inhaled steroids; Z79.82 Long term (current) use of aspirin; Z79.899 Other long term (current) drug therapy; Z88.5 Allergy status to narcotic agent
CPT/HCPCS: 99283

== ENCOUNTER 2024-09-17 13:04 | Emergency (ER) | payer MEDICARE ==
[~2024-09-17] VITALS: Ht 167.6 cm; Wt 62.1 kg
[~2024-09-17 13:04] MED LIST changes: +AMOX500T2 PO
--- NOTE | 2024-09-17 14:00 | ERN ---
ED Note History of Present Illness Stated Complaint: VAGINAL BLEEDING Chief Complaint: Vaginal Problems/Bleeding Time Seen by MD: 13:07 Dictation: HISTORY OF PRESENT ILLNESS: 69-year-old female with past medical history of diabetes, hypertension, GERD not on any regular medications presented to ED with complaints of vaginal bleeding and pelvic pain for past 2 days. As per the patient vaginal bleed started suddenly, nontraumatic, staining the underpants with no clots. She also complains of cramping like back pain radiating to the groin region 7/10 intensity. She compares the pain to period pains. She appears anxious. She also complains of mild dysuria and random chest pains. She underwent tubal ligation in 2003 or 2004 and is unsure if her uterus have been removed or not. She denies fever, nausea, vomiting, shortness of breath, changes in vision, headache or change in bowel habits. Allergies: Coded Allergies: codeine (Verified Allergy, Unknown, 08/13/20) Uncoded Allergies: CODEINE SULFATE (Adverse Reaction, Intermediate, UPSET STOMACH, DIZZINESS, 08/13/20) Home Meds Active Scripts Amoxicillin (Amoxicillin) 500 Mg Tablet, 1 TAB PO TID for 10 Days, #30 TAB 0 Refills Prov:JOSELITO MCCLAIN MD 06/24/24 Aspirin (ASPIRIN 81MG CHEW TAB) 81 Mg Tab.chew, 81 MG PO DAILY, #30 TAB.CHEW 0 Refills Prov:FLORIAN SANDERS 12/15/23 Atorvastatin Calcium (Atorvastatin Calcium) 20 Mg Tablet, 20 MG PO HS, #30 TAB 0 Refills Prov:FLORIAN SANDERS 12/15/23 Clopidogrel Bisulfate (Plavix) 75 Mg Tablet, 75 MG PO DAILY, #30 TAB 0 Refills Prov:FLORIAN SANDERS 12/15/23 Omeprazole (Omeprazole) 40 Mg Capsule.dr, 40 MG PO DAILY for 30 Days, #30 CAP Prov:JESENIA HUBER DO 11/17/23 Clotrimazole (Clotrimazole) 45 Gm Cream.appl, 45 GM VG BID for 7 Days, #1 TUBE Prov:CORINA RICH [employer] PIP[employer] ASSEMBLER 01/22/23 Benzonatate (Tessalon Perles) 100 Mg Cap, 100 MG PO TID, #15 CAP Prov:ROBERTO HENRYP 10/24/21 Budesonide (Pulmicort Flexhaler) 90 Mcg Aer.pow.ba, 90 MCG IH BID for 7 Days, #1 INHALER Prov:GIO GLOVER MD 07/19/21 Albuterol Sulfate (Proair Hfa) 8.5 Gm Hfa.aer.ad, 2 PUFF IH Q4HPRN, #1 INHALER 0 Refills Prov:LAKEISHA CARBAJAL MD 07/05/21 Past Medical History Past Medical History: Arthritis, Diabetes-Type II, GERD, Hypertension, Migraines, Sinusitis Additional Past Medical Hx: PRE DM Surgical History: None Surgical History Other: SINUS, HEADACHES Family History: Negative Social History: Negative, Lives with family History: Not Applicable Review of System Dictation REVIEW OF SYSTEMS Positive for bleeding per vagina and abdominal cramps CONSTITUTIONAL: Denies fevers, chills, or night sweats. No unintentional weight loss reported. ENT: No hearing loss, otalgia, otorrhea, rhinitis, rhinorrhea, hoarseness, or sore throat. CARDIOVASCULAR: Denies any exertional angina, dyspnea on exertion, orthopnea, paroxysmal nocturnal dyspnea, palpitations claudication. PULMONARY: Denies any shortness of breath, cough, phlegm / sputum, hemoptysis, pleuritic chest pain. SLEEP: Denies morning headaches, daytime somnolence or napping. Denies difficulty falling asleep, staying asleep, waking from sleep. Denies knowledge of snoring. GASTROINTESTINAL: Denies any type of dysphagia to either liquids or solids. Denies nausea, vomiting, abdominal pain, diarrhea, constipation, blood in stools . NEUROLOGICAL: Denies headache, motor weakness, sensory deficit, vertigo / spinning sensation, gait abnormalities, or tremors. GENITOURINARY: Denies frequency, urgency, nocturia, hematuria or incontinence, low urinary stream, straining to void, urinary intermittency or hesitancy ENDOCRINOLOGY: Denies polyuria, polydipsia, polyphagia or heat / cold intolerance. HEMATOLOGY: Denies thrombophilia / previous clots, or coagulopathy / bleeding disorders. ONCOLOGIC: Denies personal history of malignancy. DERMATOLOGIC: Denies rashes or pruritus. PSYCHIATRIC: Denies any suicidal or homicidal ideation. Denies hallucinations. Initial Vital Sign VS Vital Signs Date Time Temp Pulse Resp B/P (MAP) Pulse Ox O2 Delivery O2 Flow Rate FiO2 09/17/24 13:06 97.3 70 20 196/91 99 0 Physical Exam Dictation PHYSICAL EXAM GENERAL APPEARANCE: Anxious, Well nourished . Awake and alert. Oriented to time, place and person. No acute cardiopulmonary distress. HEENT: Head normocephalic , atraumatic. Sclera anicteric . Pupils are round and reactive. Extraocular movements intact . No conjunctival injection. No nasal congestion. No throat congestion .Oral mucosa moist. NECK: Supple. No JVD. No thyromegaly. No submental, submandibular, pre-/postauricular, occipital or supraclavicular lymphadenopathy. No carotid bruits. LUNGS: Clear to auscultation bilaterally . No rales, rhonchi or any wheezing. CARDIOVASCULAR: Regular rate and rhythm. S1 and S2 normal. No rubs, murmurs or gallops. ABDOMEN: Soft, generalized tenderness and nondistended. There is no rebound tenderness, voluntary guarding, or rigidity. No hepatosplenomegaly. Bowel sounds increased.. NEUROLOGICAL: Cranial nerves II-XII grossly intact. Motor is 5/5 in bilateral upper and lower extremities . No sensory deficits. EXTREMITIES: No edema, No cyanosis , No clubbing. Good capillary refill. SKIN: No skin breakdown. No rashes or lesions . PSYCHIATRY: Normal affect .No auditory or visual hallucinations. Normal speech. No dysarthria. Results (Laboratory/Radiology) Laboratory/Radiology Laboratory Tests Test 09/17/24 16:21 White Blood Count 10.1 K/uL (4.8-10.8) Red Blood Count 4.38 MIL/uL (4.00-5.50) Hemoglobin 14.0 g/dL (12.0-16.0) Hematocrit 41.8 % (36-48) Mean Corpuscular Volume 95.4 fL (79-99) Mean Corpuscular Hemoglobin 32.0 pg (27.0-33.0) Mean Corpuscular Hemoglobin Concent 33.5 g/dL (32.0-36.0) Red Cell Distribution Width 13.0 % (11.0-15.5) Platelet Count 260 K/uL (130-400) Mean Platelet Volume 11.1 fL (7.5-10.5) H Immature Granulocyte % (Auto) 0.4 % (0-1) Neutrophils (%) (Auto) 70.0 % (40.0-77.0) Lymphocytes (%) (Auto) 21.0 % (21.0-51.0) Monocytes (%) (Auto) 4.5 % (3.0-13.0) Eosinophils (%) (Auto) 3.9 % (0.0-8.0) Basophils (%) (Auto) 0.2 % (0.0-5.0) Neutrophils # (Auto) 7.0 K/uL (1.8-7.7) Lymphocytes # (Auto) 2.1 K/uL (1.0-4.8) Monocytes # (Auto) 0.5 K/uL (0.1-1.0) Eosinophils # (Auto) 0.39 K/uL (0.00-0.70) Basophils # (Auto) 0.02 K/uL (0.00-0.20) Absolute Immature Granulocyte (auto 0.04 K/uL (0-1) Nucleated Red Blood Cells 0.0 % (0.0-0.19) Prothrombin Time 10.3 SEC (9.6-11.6) Prothromb Time International Ratio 0.97 (0.85-1.15) Activated Partial Thromboplast Time 24.8 SEC (26.3-35.5) L Sodium Level 139 mmol/L (136-145) Potassium Level 4.0 mmol/L (3.5-5.1) Chloride Level 103 mmol/L (101-111) Carbon Dioxide Level 31 mmol/L (21-32) Blood Urea Nitrogen 11 mg/dL (7-18) Creatinine 0.7 mg/dL (0.5-1.0) Glomerular Filtration Rate Calc 93 mL/min (>90) Random Glucose 122 mg/dL (70-105) H Lactic Acid Level 0.9 mmol/L (0.8-2.5) Total Calcium 9.2 mg/dL (8.5-10.1) Total Bilirubin 0.4 mg/dL (0.2-1.0) Direct Bilirubin 0.1 mg/dL (0.0-0.3) Aspartate Amino Transf (AST/SGOT) 24 U/L (10-37) Alanine Aminotransferase (ALT/SGPT) 29 U/L (12-78) Alkaline Phosphatase 104 U/L (50-136) Troponin I High Sensitivity 4 ng/L (4-50) Total Protein 8.3 g/dL (6.0-8.3) Albumin 4.0 g/dL (3.5-5.0) Lipase 37 U/L (16-77) Thyroid Stimulating Hormone (TSH) 3.81 uIU/mL (0.36-3.74) H CT Scan Comment: PROCEDURE: ABD PELWWO - CT ABDOMEN/PELVIS W/WO CONTRAS INDICATION: Postmenopausal vaginal bleeding, abdominal pain TECHNIQUE: Routine transaxial images at 5 mm slice thickness were obtained prior to the administration of contrast material through the abdomen only, and after the intravenous infusion of 75 mL of Omnipaque 350 through the abdomen and pelvis without adverse effects. Delayed images of the abdomen and pelvis were also obtained. Coronal and sagittal reformatted imaging acquired for interpretation. CT was performed with one or more of the following dose reduction techniques: Automated exposure control, adjustment of the mA and/or kV according to patient size, or use of iterative reconstruction technique. COMPARISON: 11/17/2023 FINDINGS: ABDOMEN: Heart size is normal. Visible lung bases are clear. The liver is normal in size and smooth in contour without lesions or biliary duct dilation. The spleen is normal in size without lesions. The gallbladder appears normal. The pancreas appears normal without pancreatic duct dilation. The adrenal glands appear normal. Small simple right renal cyst. Left kidney appears normal. Cortical nephrograms are symmetric and normal in appearance bilaterally. No significant abdominal, retrocrural or retroperitoneal adenopathy noted.No evidence for intra-abdominal free air or organized fluid collection. No aortic aneurysmal dilation or dissection identified. PELVIS: No evidence for free air or organized pelvic fluid collection. No significant pelvic adenopathy detected. 3.5 cm diverticulum arising medially of the first segment of the duodenum.. Several diverticula along the distal colon. Terminal ileum appears unremarkable. The appendix appears normal. The urinary bladder appears unremarkable. Uterus is absent. Small anterior L4 vertebral body hemangioma.. IMPRESSION: Absent uterus without any acute pelvic abnormality. Distal colonic diverticulosis without radiculitis or colitis. Additional minor findings and pertinent negatives as reported. ED Course ED Course Orders Procedure Category Date Status Time Cbc With Differential LAB 09/17/24 Complete 13:32 Basic Metabolic Panel LAB 09/17/24 Complete 13:32 Hepatic Function Panel LAB 09/17/24 Complete 13:32 Lactic Acid LAB 09/17/24 Complete 13:32 Type And Screen BBK 09/17/24 Complete 13:32 Urinalysis Profile LAB 09/17/24 Logged 13:32 Ct Abdomen/Pelvis CT 09/17/24 Resulted W/Wo Contras 13:32 Us Pelvic Non-Ob Comp US 09/17/24 Resulted 13:32 Ketorolac PHA 09/17/24 Complete Tromethamine 30mg/Ml 14:30 Prothrombin Time With LAB 09/17/24 Complete INR 13:32 Partial LAB 09/17/24 Complete Thromboplastin Time 13:32 Thyroid Stimulating LAB 09/17/24 Complete Hormone 13:32 Lipase LAB 09/17/24 Complete 13:32 Troponin I High LAB 09/17/24 Complete Sensitivity 13:32 12 Lead Ekg Tracing- EKG 09/17/24 Complete Technical 13:32 *Nursing CPOE 09/17/24 Transmitted Communication: 13:45 Iohexol (Omnipaque) PHA 09/17/24 Complete 17:23 Current Medications Medications (Trade) Dose Ordered Sig/Dary Route PRN Reason Start Time Stop Time Status Last Admin Dose Admin Iohexol (Omnipaque) 75 ml STK-MED ONCE IV 09/17/24 17:23 09/17/24 17:23 DC Ketorolac Tromethamine (toRADol) 30 mg ONCE ONCE IM 09/17/24 14:30 09/17/24 14:31 DC 09/17/24 16:30 Vital Signs Date Time Temp Pulse Resp B/P (MAP) Pulse Ox O2 Delivery O2 Flow Rate FiO2 09/17/24 13:06 97.3 70 20 196/91 99 0 1:30 p.m.: Patient appears to be anxious and states that she has abdominal pain of 7/10 intensity. Her vitals are stable except for BP of 196/91 mmHg. We will treat her with Toradol IM injection stat and recheck her blood pressure again. 1:45 p.m.: Requested CBC, BMP, hepatic function panel, TSH, blood type and screen, PT INR, urinalysis, CT abdomen, ultrasound abdomen. 3:00 P.M. patient remains stable. Pending lab results and CTs abdomen. 4:30 p.m. her hemoglobin is 14 patient remains stable pending CT abdomen and remaining labs. 5:50 p.m.: Her labs are relatively normal. CT abdomen without any significant pathology. Plan is to refer her to a water softener servicer and installer for detailed evaluation of abnormal bleeding per vaginum. Medical Decision Making MDM Differential diagnosis : Abnormal bleeding per vagina, postmenopausal bleeding, Rationale: Tests considered and ordered secondary to shared decision making include: I will re-evaluate the patient after treatment and diagnostic exams have returned to determine whether they require further testing, can be safely discharged home, or need admission for further treatment and evaluation. Given the social determinants of health affecting care, including literacy, access to medical care, prescription drug management, and [id number] drugs, I will ensure that treatment plans are tailored accordingly. There are no social concerns with this patient. Risk of complication and/or morbidity or mortality of patient management: None Need for hospitalization: Patient does not meet criteria for hospitalization. Need for emergency major/minor surgery: No Prescription drug management Prescriptions will include symptomatic care Medications-Per medication reconciliation Previous outside records reviewed: Old ER visits. Patient's prior external medical records from other ER visits were reviewed by me as indicated. Prior testing and results from previous visits were reviewed. Prior tests were taken into account with medical decision making and resource utilization, independent historian/historians were used to obtain complete medical history. I independently interpreted the test that were performed, results were reviewed by me and considered findings on radiology. Medical management and examination interpretation discussions was done by me with other qualified healthcare professionals as indicated for the patient's ca re. Revaluation patient remained stable. Disposition : Discharge home DX & DISP Disposition: Discharge Departure Impression: Primary Impression: Post-menopausal bleeding Additional Impression: Uncontrolled hypertension Condition: Stable Additional Instructions: Follow-up with primary care provider in 1-2 days Take medications as directed here in the emergency room. It is okay to continue home medications unless otherwise discussed during your visit in the emergency room today. Increase oral hydration. . Return to your nearest emergency room if symptoms worsen or if there is no improvement. Call 911 if you need immediate assistance. Referrals: SHIRLEY WALDRON MD (PCP) I performed a substantive portion of the visit. I have reviewed and personally made and approve the management plan that is documented in the notes by myself with DAX/resident. I acknowledged full responsibility for the patient's management plan. MARIANA GONZALEZ MD Sep 17, 2024 14:00 JESENIA HUBER DO Sep 17, 2024 18:20
--- NOTE | 2024-09-17 14:11 | HMCIMG ---
Pelvic transabdominal ultrasound -female Findings: The uterus is surgically absent. The ovaries are not visualized. No fluid collections or masses or free fluid are identified in the pelvis. Impression: Status post hysterectomy. Nonvisualization of the ovaries.
--- NOTE | 2024-09-17 14:22 | EKG ---
[facility] Test Date: 2024-09-17 Test Time: 14:20:20 Pat Name: LENNY VARGAS Department: ED Room: Gender: F Beater Out: [id number] : [id number] Requested By: MARIANA GONZALEZ Order Number: [id number] Reading MD: Miguel Nieto Measurements Intervals [place] Rate: 64 P: 58 MN: 143 QRS: -2 QRSD: 84 T: 20 QT: 390 QTc: 402 Interpretive Statements Sinus rhythm Borderline T abnormalities, diffuse leads Compared to ECG 12/10/2023 16:28:31 T-wave abnormality now present Electronically Signed On 09-17-2024 23:37:35 CDT by Miguel Nieto Please click the below link to view image of tracing.
[2024-09-17] MEDS: ketOROlac 30MG VIAL (30MG/ML) IM ONE (16:30)
[2024-09-17 16:39] LABS: BASOPHILS # (AUTO) 0.02 K/uL (0.00-0.20); BASOPHILS % (AUTO) 0.2 % (0.0-5.0); EOSINOPHILS # (AUTO) 0.39 K/uL (0.00-0.70); EOSINOPHILS % (AUTO) 3.9 % (0.0-8.0); HEMATOCRIT 41.8 % (36-48); IMMATURE GRANULOCYTE ABSOLUTE 0.04 K/uL (0-1); LYMPHOCYTES # (AUTO) 2.1 K/uL (1.0-4.8); MEAN CORPUSCULAR HGB CONC 33.5 g/dL (32.0-36.0); MEAN CORPUSCULAR VOLUME 95.4 fL (79-99); MONOCYTES # (AUTO) 0.5 K/uL (0.1-1.0); MONOCYTES % (AUTO) 4.5 % (3.0-13.0); PLATELET COUNT (AUTO) 260 K/uL (130-400); RED BLOOD CELL COUNT(AUTO) 4.38 MIL/uL (4.00-5.50); WHITE BLOOD COUNT (AUTO) 10.1 K/uL (4.8-10.8)
[2024-09-17 16:54] LABS: INR 0.97 (0.85-1.15); PROTHROMBIN TIME 10.3 SEC (9.6-11.6)
[2024-09-17 16:55] LABS: PARTIAL THROMBOPLASTIN TIME 24.8 SEC (26.3-35.5)
[2024-09-17 16:58] LABS: CREATININE 0.7 mg/dL (0.5-1.0)
[2024-09-17 17:11] LABS: BILIRUBIN,DIRECT 0.1 mg/dL (0.0-0.3); BILIRUBIN,TOTAL 0.4 mg/dL (0.2-1.0); THYROID STIMULATING HORMONE 3.81 uIU/mL (0.36-3.74); TOTAL PROTEIN, SERUM 8.3 g/dL (6.0-8.3)
[2024-09-17] MEDS ORDERED: IOHEXOL-350 75 ML VIAL IV ONE (17:23)
--- NOTE | 2024-09-17 18:11 | HMCIMG ---
CT ABDOMEN WITHOUT AND WITH CONTRAST. CT PELVIS WITHOUT AND WITH CONTRAST INDICATION: Postmenopausal vaginal bleeding, abdominal pain TECHNIQUE: Routine transaxial images at 5 mm slice thickness were obtained prior to the administration of contrast material through the abdomen only, and after the intravenous infusion of 75 mL of Omnipaque 350 through the abdomen and pelvis without adverse effects. Delayed images of the abdomen and pelvis were also obtained. Coronal and sagittal reformatted imaging acquired for interpretation. CT was performed with one or more of the following dose reduction techniques: Automated exposure control, adjustment of the mA and/or kV according to patient size, or use of iterative reconstruction technique. COMPARISON: 11/17/2023 FINDINGS: ABDOMEN: Heart size is normal. Visible lung bases are clear. The liver is normal in size and smooth in contour without lesions or biliary duct dilation. The spleen is normal in size without lesions. The gallbladder appears normal. The pancreas appears normal without pancreatic duct dilation. The adrenal glands appear normal. Small simple right renal cyst. Left kidney appears normal. Cortical nephrograms are symmetric and normal in appearance bilaterally. No significant abdominal, retrocrural or retroperitoneal adenopathy noted.No evidence for intra-abdominal free air or organized fluid collection. No aortic aneurysmal dilation or dissection identified. PELVIS: No evidence for free air or organized pelvic fluid collection. No significant pelvic adenopathy detected. 3.5 cm diverticulum arising medially of the first segment of the duodenum.. Several diverticula along the distal colon. Terminal ileum appears unremarkable. The appendix appears normal. The urinary bladder appears unremarkable. Uterus is absent. Small anterior L4 vertebral body hemangioma.. IMPRESSION: Absent uterus without any acute pelvic abnormality. Distal colonic diverticulosis without radiculitis or colitis. Additional minor findings and pertinent negatives as reported.
[2024-09-17] MEDS ORDERED: HYDR-4060 PO (18:26)
[2024-09-17 18:35] VITALS: BP 167/87; PULSE 63; RESP 17; TEMP 97.9; O2SAT 98
== END 2024-09-17 18:42 | disposition home or self-care (01) ==
LOC: EDH 13:04
DX: N95.0 Postmenopausal bleeding (principal); E11.9 Type 2 diabetes mellitus without complications; I10 Essential (primary) hypertension; K21.9 Gastro-esophageal reflux disease without esophagitis; M19.90 Unspecified osteoarthritis, unspecified site; Z79.02 Long term (current) use of antithrombotics/antiplatelets; Z79.51 Long term (current) use of inhaled steroids; Z79.82 Long term (current) use of aspirin; Z79.899 Other long term (current) drug therapy; Z88.5 Allergy status to narcotic agent; Z90.710 Acquired absence of both cervix and uterus
CPT/HCPCS: 99285; 74178; 76856; 84443; 80076; 84484; 80048; 83690; 85025; 85610; 85730; 86850; 86900; 86901; 83605; 36415; 96372; 93005; J1885; Q9967

== ENCOUNTER 2024-10-01 14:50 | Emergency (ER) | payer MEDICARE ==
[~2024-10-01] VITALS: Ht 165.1 cm; Wt 59.0 kg
[~2024-10-01 14:50] MED LIST changes: +HYDR-4060 PO
[2024-10-01 17:06] LABS: BASOPHILS # (AUTO) 0.03 K/uL (0.00-0.20); BASOPHILS % (AUTO) 0.3 % (0.0-5.0); EOSINOPHILS # (AUTO) 0.57 K/uL (0.00-0.70); EOSINOPHILS % (AUTO) 5.6 % (0.0-8.0); HEMATOCRIT 37.3 % (36-48); IMMATURE GRANULOCYTE ABSOLUTE 0.03 K/uL (0-1); LYMPHOCYTES # (AUTO) 2.7 K/uL (1.0-4.8); LYMPHOCYTES % (AUTO) 26.2 % (21.0-51.0); MEAN CORPUSCULAR HEMOGLOBIN 32.2 pg (27.0-33.0); MEAN CORPUSCULAR VOLUME 94.7 fL (79-99); MONOCYTES # (AUTO) 0.6 K/uL (0.1-1.0); MONOCYTES % (AUTO) 6.3 % (3.0-13.0); NEUTROPHILS # (AUTO) 6.2 K/uL (1.8-7.7); NEUTROPHILS % (AUTO) 61.3 % (40.0-77.0); PLATELET COUNT (AUTO) 256 K/uL (130-400); RED BLOOD CELL COUNT(AUTO) 3.94 MIL/uL (4.00-5.50); RED CELL DISTRIBUTION WIDTH 13.1 % (11.0-15.5); WHITE BLOOD COUNT (AUTO) 10.2 K/uL (4.8-10.8)
[2024-10-01 17:17] LABS: INR 0.98 (0.85-1.15); PROTHROMBIN TIME 10.4 SEC (9.6-11.6)
[2024-10-01 17:19] LABS: PARTIAL THROMBOPLASTIN TIME 25.1 SEC (26.3-35.5)
[2024-10-01 17:21] LABS: CREATININE 0.8 mg/dL (0.5-1.0); POTASSIUM 3.7 mmol/L (3.5-5.1)
[2024-10-01 17:26] LABS: ALBUMIN 3.6 g/dL (3.5-5.0); BILIRUBIN,DIRECT 0.1 mg/dL (0.0-0.3); BILIRUBIN,TOTAL 0.2 mg/dL (0.2-1.0); TOTAL PROTEIN, SERUM 7.6 g/dL (6.0-8.3)
[2024-10-01 17:27] LABS: APPEARANCE,URINE CLEAR (CLEAR); BILIRUBIN,URINE NEGATIVE (NEGATIVE); COLOR,URINE COLORLESS (YELLOW); GLUCOSE, URINE (UA) NEGATIVE (NEGATIVE); KETONES,URINE NEGATIVE (NEGATIVE); LEUKOCYTE ESTERASE ,URINE NEGATIVE Leu/uL (NEGATIVE); NITRATE,URINE NEGATIVE (NEGATIVE); OCCULT BLOOD,URINE NEGATIVE (NEGATIVE); PH,URINE 5.5 (5.0-8.0); PROTEIN,URINE NEGATIVE (NEGATIVE); UROBILINOGEN,URINE 0.2 mg/dL (0.2-1.0)
[2024-10-01 17:28] LABS: ADD UA MICROSCOPIC NO
[2024-10-01] MEDS ORDERED: DOCU-116 PO (20:36)
[2024-10-01] MEDS ORDERED: LACTULOSE 20 GM/30 ML UDCUP PO ONE (21:00)
--- NOTE | 2024-10-01 21:01 | ERN ---
General Chief Complaint: Multiple Complaints Stated Complaint: ABDOMINAL PAIN, TROUBLE URINATING Time Seen by MD: 17:15 Time Seen by Midlevel: 17:15 Source: patient History of Present Illness Initial Comments Patient is a 69-year-old female presenting to the emergency department with multiple complaints. She reports mild vaginal bleeding described as spotting. She also reports constipation. She states she was seen here a proximally one week ago with the same symptoms. She had an ultrasound and CT scan performed which were normal. She was told to follow up with OBGYN but she never follow up outpatient. Allergies: Coded Allergies: codeine (Verified Allergy, Unknown, 08/13/20) Uncoded Allergies: CODEINE SULFATE (Adverse Reaction, Intermediate, UPSET STOMACH, DIZZINESS, 08/13/20) Home Meds Active Scripts Hydrocodone/Acetaminophen (Hydrocodon-Acetaminophen 5-325) 5 Mg-325 Mg Tablet, 1 TAB PO TIDP PRN for pain for 5 Days, #15 TAB 0 Refills Prov:JESENIA HUBER DO 09/17/24 Amoxicillin (Amoxicillin) 500 Mg Tablet, 1 TAB PO TID for 10 Days, #30 TAB 0 Refills Prov:JOSELITO MCCLAIN MD 06/24/24 Aspirin (ASPIRIN 81MG CHEW TAB) 81 Mg Tab.chew, 81 MG PO DAILY, #30 TAB.CHEW 0 Refills Prov:FLORIAN SANDERS 12/15/23 Atorvastatin Calcium (Atorvastatin Calcium) 20 Mg Tablet, 20 MG PO HS, #30 TAB 0 Refills Prov:FLORIAN SANDERS 12/15/23 Clopidogrel Bisulfate (Plavix) 75 Mg Tablet, 75 MG PO DAILY, #30 TAB 0 Refills Prov:FLORIAN SANDERS 12/15/23 Omeprazole (Omeprazole) 40 Mg Capsule.dr, 40 MG PO DAILY for 30 Days, #30 CAP Prov:JESENIA HUBER DO 11/17/23 Clotrimazole (Clotrimazole) 45 Gm Cream.appl, 45 GM VG BID for 7 Days, #1 TUBE Prov:CORINA RICH NP 01/22/23 Benzonatate (Tessalon Perles) 100 Mg Cap, 100 MG PO TID, #15 CAP Prov:ROBERTO HENRY 10/24/21 Budesonide (Pulmicort Flexhaler) 90 Mcg Aer.pow.ba, 90 MCG IH BID for 7 Days, #1 INHALER Prov:GIO GLOVER MD 07/19/21 Albuterol Sulfate (Proair Hfa) 8.5 Gm Hfa.aer.ad, 2 PUFF IH Q4HPRN, #1 INHALER 0 Refills Prov:LAKEISHA CARBAJAL MD 07/05/21 Past Medical History Past Medical History: Arthritis, Diabetes-Type II, GERD, Hypertension, Migraines, Sinusitis Medical History Other: PRE DM Past Surgical History: None Surgical History Other: SINUS, HEADACHES Family History Family History: Negative Social History Social History: Negative, Lives with family Female( History) History: Not Applicable ROS Dictation CONSTITUTIONAL: Negative except for HPI HEAD/FACE: Negative except for HPI EENT: Negative except for HPI RESPIRATORY: Negative except for HPI GASTROINTESTINAL/ABDOMINAL: Negative except for HPI GENITOURINARY: Negative except for HPI MUSCULOSKELETAL: Negative except for HPI INTEGUMENTARY: Negative except for HPI NEUROLOGICAL/PSYCH: Negative except for HPI HEMATOLOGIC/LYMPHATIC: Negative except for HPI All Systems Negative, Except as noted above. 13 point review of systems assessed and all negative except for above. Physical Exam Physical Exam Dictation Vital Signs reviewed General Appearance: Alert, oriented x 3, no acute distress, well developed, nourished. Head and Face: non-traumatic. Eyes: PERRL, pink conjunctivas, eyelid no trauma, anterior chamber with arcus senilis. Ears: Pinnas intact and no signs of trauma or erythema ear canals clear and no discharge TM no erythema Nose: No discharge, no bleeding. Oropharynx: Mouth normal, tongue pink, pharynx clear,no erythema, tonsils no exudates, no abscesses noted, mucous membrane moist Neck: Supple, non-tender, no thyromegaly, no masses, no JVD, no bruits Breast:Deferred Chest:No tenderness, no crepitus, no paradoxical movement, no retractions Lungs:Clear, well-ventilated, symmetric, no rales, no wheezing, no rhonchi, no stridor, good breath sounds bilaterally Heart: Regular rate, regular rhythm, no murmur, no gallops Vascular: no peripheral edema, Abdomen: Soft, positive bowel sounds, nondistended, no guarding, nontender, no rebound, no masses no hepatomegaly, no splenomegaly, no Ram's sign, no hernias. Rectal: Deferred Genital: Deferred Neurological: Normal speech, motor function intact, sensory function intact Musculoskeletal: Neck nontender, full range of motion, back nontender, full range of motion, Extremities: nontender, full range of motion Skin: Color pink, dry, no turgor, no rash, no lacerations, no abrasions, no contusions. Lymphatic: Deferred Results Laboratory and Microbiology Lab and Micro Result Laboratory Tests Test 10/01/24 16:50 10/01/24 16:58 Urine Color COLORLESS (YELLOW) Urine Appearance CLEAR (CLEAR) Urine pH 5.5 (5.0-8.0) Urine Specific Jean 1.003 (1.001-1.031) Urine Protein NEGATIVE mg/dL (NEGATIVE) Urine Glucose (UA) NEGATIVE mg/dL (NEGATIVE) Urine Ketones NEGATIVE mg/dL (NEGATIVE) Urine Occult Blood NEGATIVE (NEGATIVE) Urine Nitrate NEGATIVE (NEGATIVE) Urine Bilirubin NEGATIVE mg/dL (NEGATIVE) Urine Urobilinogen 0.2 mg/dL (0.2-1.0) Urine Leukocyte Esterase NEGATIVE Ifeanyi/uL White Blood Count 10.2 K/uL (4.8-10.8) Red Blood Count 3.94 MIL/uL (4.00-5.50) L Hemoglobin 12.7 g/dL (12.0-16.0) Hematocrit 37.3 % (36-48) Mean Corpuscular Volume 94.7 fL (79-99) Mean Corpuscular Hemoglobin 32.2 pg (27.0-33.0) Mean Corpuscular Hemoglobin Concent 34.0 g/dL (32.0-36.0) Red Cell Distribution Width 13.1 % (11.0-15.5) Platelet Count 256 K/uL (130-400) Mean Platelet Volume 10.9 fL (7.5-10.5) H Immature Granulocyte % (Auto) 0.3 % (0-1) Neutrophils (%) (Auto) 61.3 % (40.0-77.0) Lymphocytes (%) (Auto) 26.2 % (21.0-51.0) Monocytes (%) (Auto) 6.3 % (3.0-13.0) Eosinophils (%) (Auto) 5.6 % (0.0-8.0) Basophils (%) (Auto) 0.3 % (0.0-5.0) Neutrophils # (Auto) 6.2 K/uL (1.8-7.7) Lymphocytes # (Auto) 2.7 K/uL (1.0-4.8) Monocytes # (Auto) 0.6 K/uL (0.1-1.0) Eosinophils # (Auto) 0.57 K/uL (0.00-0.70) Basophils # (Auto) 0.03 K/uL (0.00-0.20) Absolute Immature Granulocyte (auto 0.03 K/uL (0-1) Nucleated Red Blood Cells 0.0 % (0.0-0.19) Prothrombin Time 10.4 SEC (9.6-11.6) Prothromb Time International Ratio 0.98 (0.85-1.15) Activated Partial Thromboplast Time 25.1 SEC (26.3-35.5) L Sodium Level 134 mmol/L (136-145) L Potassium Level 3.7 mmol/L (3.5-5.1) Chloride Level 99 mmol/L (101-111) L Carbon Dioxide Level 27 mmol/L (21-32) Blood Urea Nitrogen 15 mg/dL (7-18) Creatinine 0.8 mg/dL (0.5-1.0) Glomerular Filtration Rate Calc 79 mL/min (>90) Random Glucose 104 mg/dL (70-105) Total Calcium 8.9 mg/dL (8.5-10.1) Total Bilirubin 0.2 mg/dL (0.2-1.0) Direct Bilirubin 0.1 mg/dL (0.0-0.3) Aspartate Amino Transf (AST/SGOT) 15 U/L (10-37) Alanine Aminotransferase (ALT/SGPT) 21 U/L (12-78) Alkaline Phosphatase 100 U/L (50-136) Total Protein 7.6 g/dL (6.0-8.3) Albumin 3.6 g/dL (3.5-5.0) Labs Reviewed?: Yes MDM MDM: Patient is a 69-year-old female presenting to the emergency department with multiple complaints. She reports mild vaginal bleeding described as spotting. She also reports constipation. She states she was seen here a proximally one week ago with the same symptoms. She had an ultrasound and CT scan performed which were normal. She was told to follow up with OBGYN but she never follow up outpatient. On physical examination the patient was in no acute distress. Abd ominal examination is unremarkable. CBC and chemistries are stable. Urinalysis not show any evidence of infection. Patient had a pelvic ultrasound and a CT scan of the abdomen performed a proximally one week ago that was unremarkable. Patient will need to follow up outpatient for further evaluation. She already has an OBGYN that she sees outpatient but needs to schedule an appointment. She was encouraged to schedule an appointment. There was no need for emergent intervention at this time. The patient will be given Colace in the emergency department will be discharged home with a prescription for Colace. Differential diagnosis: Constipation, postmenopausal bleeding, urinary tract infection There are no social concerns with this patient. Prescription drug management Prescriptions will include: Colace Medical management and examination interpretation discussions were had by me with other qualified healthcare professionals as indicated for the patient's care. ED Course Orders Procedure Category Date Status Time Cbc With Differential LAB 10/01/24 Complete 15:38 Basic Metabolic Panel LAB 10/01/24 Complete 15:38 Prothrombin Time With LAB 10/01/24 Complete INR 15:38 Partial LAB 10/01/24 Complete Thromboplastin Time 15:38 Hepatic Function Panel LAB 10/01/24 Complete 15:38 Ketorolac PHA 10/01/24 Complete Tromethamine 15mg/Ml 16:00 Urinalysis Profile LAB 10/01/24 Complete 16:25 Current Medications Medications (Trade) Dose Ordered Sig/Dary Route PRN Reason Start Time Stop Time Status Last Admin Dose Admin Ketorolac Tromethamine (toRADol) 15 mg ONCE ONCE IM 10/01/24 16:00 10/01/24 16:01 DC Vital Signs Date Time Temp Pulse Resp B/P (MAP) Pulse Ox O2 Delivery O2 Flow Rate FiO2 10/01/24 15:27 97.9 77 20 164/85 99 DX & DISP Disposition: Discharge Departure Impression: Primary Impression: Post-menopausal bleeding Additional Impression: Constipation Condition: Stable Scripts Docusate Sodium (Colace) 100 Mg Capsule 100 MG PO TID for constipation, #30 CAP 0 Refills Prov: SAY PÉREZ 10/01/24 Referrals: SHIRLEY WALDRON MD (PCP) ERICKSON GAO MD, JAROD N MD Time of Disposition: 20:33 I have reviewed the case, and I agree with, Diagnosis and Plan I performed the substantive portion of the visit. I have reviewed and personally made and approve the management plan that is documented in the note by myself or the [facility]. I acknowledge for responsibility for the patient's management plan. SAY PÉREZ Oct 01, 2024 21:01
[2024-10-01] MEDS ORDERED: ketOROlac 15MG/ML VIAL (15MG/ML) ONE (21:37)
[2024-10-01] MEDS: doCUSate SODIUM 100 MG CAP PO ONE (21:39)
[2024-10-01] MEDS: ketOROlac 15MG/ML VIAL (15MG/ML) IM ONE (21:40)
[2024-10-01 21:52] VITALS: BP 154/69; PULSE 68; RESP 18; TEMP 97; O2SAT 99
== END 2024-10-01 21:55 | disposition home or self-care (01) ==
LOC: EDH 14:50
DX: N95.0 Postmenopausal bleeding (principal); K59.00 Constipation, unspecified; E11.9 Type 2 diabetes mellitus without complications; I10 Essential (primary) hypertension; M19.90 Unspecified osteoarthritis, unspecified site; Z79.02 Long term (current) use of antithrombotics/antiplatelets; Z79.51 Long term (current) use of inhaled steroids; Z79.82 Long term (current) use of aspirin; Z79.899 Other long term (current) drug therapy; Z88.5 Allergy status to narcotic agent
CPT/HCPCS: 99283; 80076; 80048; 85025; 85610; 85730; 81003; 36415; 96372; J1885

== ENCOUNTER 2024-11-13 15:48 | Emergency (ER) | payer MEDICARE, MEDICAID ==
[~2024-11-13] VITALS: Ht 165.1 cm; Wt 59.9 kg
[~2024-11-13 15:48] MED LIST changes: +DOCU-116 PO
[2024-11-13 16:47] LABS: BASOPHILS # (AUTO) 0.04 K/uL (0.00-0.20); BASOPHILS % (AUTO) 0.5 % (0.0-5.0); EOSINOPHILS # (AUTO) 0.48 K/uL (0.00-0.70); EOSINOPHILS % (AUTO) 5.4 % (0.0-8.0); HEMATOCRIT 40.5 % (36-48); IMMATURE GRANULOCYTE ABSOLUTE 0.03 K/uL (0-1); LYMPHOCYTES # (AUTO) 2.2 K/uL (1.0-4.8); MEAN CORPUSCULAR HEMOGLOBIN 32.1 pg (27.0-33.0); MEAN CORPUSCULAR HGB CONC 33.1 g/dL (32.0-36.0); MEAN CORPUSCULAR VOLUME 96.9 fL (79-99); MONOCYTES # (AUTO) 0.5 K/uL (0.1-1.0); MONOCYTES % (AUTO) 5.9 % (3.0-13.0); NEUTROPHILS # (AUTO) 5.6 K/uL (1.8-7.7); NEUTROPHILS % (AUTO) 62.9 % (40.0-77.0); PLATELET COUNT (AUTO) 249 K/uL (130-400); RED BLOOD CELL COUNT(AUTO) 4.18 MIL/uL (4.00-5.50); RED CELL DISTRIBUTION WIDTH 13.3 % (11.0-15.5); WHITE BLOOD COUNT (AUTO) 8.9 K/uL (4.8-10.8)
[2024-11-13 16:54] LABS: CREATININE 0.8 mg/dL (0.5-1.0); POTASSIUM 3.7 mmol/L (3.5-5.1)
[2024-11-13 17:42] LABS: APPEARANCE,URINE CLEAR (CLEAR); BILIRUBIN,URINE NEGATIVE (NEGATIVE); COLOR,URINE COLORLESS (YELLOW); GLUCOSE, URINE (UA) NEGATIVE (NEGATIVE); KETONES,URINE NEGATIVE (NEGATIVE); LEUKOCYTE ESTERASE ,URINE 75 Leu/uL (NEGATIVE); NITRATE,URINE NEGATIVE (NEGATIVE); OCCULT BLOOD,URINE NEGATIVE (NEGATIVE); PROTEIN,URINE NEGATIVE (NEGATIVE); UROBILINOGEN,URINE 0.2 mg/dL (0.2-1.0)
[2024-11-13 17:45] LABS: ADD UA MICROSCOPIC YES
[2024-11-13 17:47] LABS: BACTERIA,URINE MANY /HPF (None Seen); RBC,URINE 0-1 /HPF (0-1); SQUAMOUS EPITHELIAL CELL,UR RARE /HPF (0-2)
[2024-11-13] MEDS: LACTULOSE 20 GM/30 ML UDCUP PO ONE (18:06)
[2024-11-13] MEDS: MAGNESIUM CITRATE 296 ML SOLUTION PO ONE (18:06)
--- NOTE | 2024-11-13 19:04 | ERN ---
General Chief Complaint: Constipation Stated Complaint: CONSTIPATION Time Seen by MD: 15:53 Source: patient History of Present Illness Initial Comments Patient is a 69-year-old female coming in to be evaluated for abdominal pain. Patient states that she has a history of constipation has not been able to defecate completely. She is here for further evaluation. Allergies: Coded Allergies: codeine (Verified Allergy, Unknown, 08/13/20) Uncoded Allergies: CODEINE SULFATE (Adverse Reaction, Intermediate, UPSET STOMACH, DIZZINESS, 08/13/20) Home Meds Active Scripts Docusate Sodium (Colace) 100 Mg Capsule, 100 MG PO TID for constipation, #30 CAP 0 Refills Prov:SAY PÉREZ 10/01/24 Hydrocodone/Acetaminophen (Hydrocodon-Acetaminophen 5-325) 5 Mg-325 Mg Tablet, 1 TAB PO TIDP PRN for pain for 5 Days, #15 TAB 0 Refills Prov:JESENIA HUBER DO 09/17/24 Amoxicillin (Amoxicillin) 500 Mg Tablet, 1 TAB PO TID for 10 Days, #30 TAB 0 Refills Prov:JOSELITO MCCLAIN MD 06/24/24 Aspirin (ASPIRIN 81MG CHEW TAB) 81 Mg Tab.chew, 81 MG PO DAILY, #30 TAB.CHEW 0 Refills Prov:FLORIAN SANDERS 12/15/23 Atorvastatin Calcium (Atorvastatin Calcium) 20 Mg Tablet, 20 MG PO HS, #30 TAB 0 Refills Prov:FLORIAN SANDERS 12/15/23 Clopidogrel Bisulfate (Plavix) 75 Mg Tablet, 75 MG PO DAILY, #30 TAB 0 Refills Prov:FLORIAN SANDERS 12/15/23 Omeprazole (Omeprazole) 40 Mg Capsule.dr, 40 MG PO DAILY for 30 Days, #30 CAP Prov:JESENIA HUBER DO 11/17/23 Clotrimazole (Clotrimazole) 45 Gm Cream.appl, 45 GM VG BID for 7 Days, #1 TUBE Prov:CORINA RICH NP 01/22/23 Benzonatate (Tessalon Perles) 100 Mg Cap, 100 MG PO TID, #15 CAP Prov:ROBERTO HENRY 10/24/21 Budesonide (Pulmicort Flexhaler) 90 Mcg Aer.pow.ba, 90 MCG IH BID for 7 Days, #1 INHALER Prov:GLOVER,GIO L MD 07/19/21 Albuterol Sulfate (Proair Hfa) 8.5 Gm Hfa.aer.ad, 2 PUFF IH Q4HPRN, #1 INHALER 0 Refills Prov:LAKEISHA CARBAJAL MD 07/05/21 Past Medical History Past Medical History: Arthritis, Diabetes-Type II, GERD, Hypertension, Migraines, Sinusitis Medical History Other: PRE DM Past Surgical History: None Surgical History Other: SINUS, HEADACHES Family History Family History: Negative Social History Social History: Negative, Lives with family Female( History) History: Not Applicable ROS Dictation CONSTITUTIONAL: No chills, no fever, no weakness, no diaphoresis, no malaise. HEAD/FACE: No signs of trauma. EENT: No eye pain, no blurred vision, no tearing, no double vision, no ear pain, no ear discharge, no nose pain, no nasal congestion, no throat pain, no throat swelling, no mouth pain. RESPIRATORY: No cough, no orthopnea, no SOB, no stridor, no wheezing. CARDIOVASCULAR: No chest pain, no edema, no palpitations, no syncope. GASTROINTESTINAL/ABDOMINAL: abdominal pain, constipation, no diarrhea, no nausea, no vomiting. GENITOURINARY: No abnormal discharge, no dysuria, no frequent urination, no hematuria. No complaints of pain in the genitals. MUSCULOSKELETAL: No back pain, no gout, no joint pain, no joint swelling, no muscle pain, no muscle stiffness, no neck pain. INTEGUMENTARY: No change in color, no change in hair/nails, no dryness, no lesion, no lumps, no rash. NEUROLOGICAL/PSYCH: No anxiety, not depressed, no emotional problem, no headache, no numbness, no pre-existing deficit, no history of seizures, no tremors, no weakness. HEMATOLOGIC/LYMPHATIC: Not anemic, no history of blood clots, no apparent bl eeding, no bruising, glands not swollen. All Systems Negative, Except as Noted. Physical Exam Physical Exam Dictation VITAL SIGNS: Reviewed. GENERAL APPEARANCE: Alert, oriented x3, no acute distress, obese. HEAD AND FACE: Non-traumatic. EYES: PERRL, pink conjunctivas, eyelid no trauma, anterior chamber clear. EARS: Pinnas intact and no signs of trauma or erythema. Ear canals clear and no discharge. TMs no erythema. NOSE: No discharge, no bleeding. OROPHARYNX: Mouth normal, teeth no caries, tongue pink. Pharynx clear, no erythema. Tonsils no exudates, no abscesses noted. Mucous membrane moist. NECK: Supple, non-tender, no thyromegaly, no masses, no JVD, no bruits. BREAST: Deferred. CHEST: No tenderness, no crepitus, no paradoxical movement, no retractions. LUNGS: Clear, well-ventilated, symmetric, no rales, no wheezing, no rhonchi, no stridor, good breath sounds bilaterally. HEART: Regular rate, regular rhythm, no murmur, no gallops. VASCULAR: No peripheral edema. ABDOMEN: Soft, positive bowel sounds, nondistended, no guarding, nontender, no rebound, no masses no hepatomegaly, no splenomegaly, no Ram's sign, no hernias. RECTAL: Deferred. GENITAL: Deferred. NEUROLOGICAL: Normal speech, gross motor function intact, gross sensory function intact. MUSCULOSKELETAL: Neck nontender, full range of motion, back nontender, full ran ge of motion. EXTREMITIES: Nontender, full range of motion. SKIN: Color pink, dry, no turgor, no rash, no lacerations, no abrasions, no contusions. LYMPHATICS: Deferred. Results Laboratory and Microbiology Lab and Micro Result Laboratory Tests Test 11/13/24 16:41 11/13/24 17:33 White Blood Count 8.9 K/uL (4.8-10.8) Red Blood Count 4.18 MIL/uL (4.00-5.50) Hemoglobin 13.4 g/dL (12.0-16.0) Hematocrit 40.5 % (36-48) Mean Corpuscular Volume 96.9 fL (79-99) Mean Corpuscular Hemoglobin 32.1 pg (27.0-33.0) Mean Corpuscular Hemoglobin Concent 33.1 g/dL (32.0-36.0) Red Cell Distribution Width 13.3 % (11.0-15.5) Platelet Count 249 K/uL (130-400) Mean Platelet Volume 10.5 fL (7.5-10.5) Immature Granulocyte % (Auto) 0.3 % (0-1) Neutrophils (%) (Auto) 62.9 % (40.0-77.0) Lymphocytes (%) (Auto) 25.0 % (21.0-51.0) Monocytes (%) (Auto) 5.9 % (3.0-13.0) Eosinophils (%) (Auto) 5.4 % (0.0-8.0) Basophils (%) (Auto) 0.5 % (0.0-5.0) Neutrophils # (Auto) 5.6 K/uL (1.8-7.7) Lymphocytes # (Auto) 2.2 K/uL (1.0-4.8) Monocytes # (Auto) 0.5 K/uL (0.1-1.0) Eosinophils # (Auto) 0.48 K/uL (0.00-0.70) Basophils # (Auto) 0.04 K/uL (0.00-0.20) Absolute Immature Granulocyte (auto 0.03 K/uL (0-1) Nucleated Red Blood Cells 0.0 % (0.0-0.19) Sodium Level 139 mmol/L (136-145) Potassium Level 3.7 mmol/L (3.5-5.1) Chloride Level 104 mmol/L (101-111) Carbon Dioxide Level 29 mmol/L (21-32) Blood Urea Nitrogen 11 mg/dL (7-18) Creatinine 0.8 mg/dL (0.5-1.0) Glomerular Filtration Rate Calc 79 mL/min (>90) Random Glucose 194 mg/dL (70-105) H Total Calcium 8.9 mg/dL (8.5-10.1) Urine Color COLORLESS (YELLOW) Urine Appearance CLEAR (CLEAR) Urine pH 6.0 (5.0-8.0) Urine Specific [place] 1.008 (1.001-1.031) Urine Protein NEGATIVE mg/dL (NEGATIVE) Urine Glucose (UA) NEGATIVE mg/dL (NEGATIVE) Urine Ketones NEGATIVE mg/dL (NEGATIVE) Urine Occult Blood NEGATIVE (NEGATIVE) Urine Nitrate NEGATIVE (NEGATIVE) Urine Bilirubin NEGATIVE mg/dL (NEGATIVE) Urine Urobilinogen 0.2 mg/dL (0.2-1.0) Urine Leukocyte Esterase 75 Ifeanyi/uL (NEGATIVE) H Urine RBC 0-1 /HPF (0-1) Urine WBC 6-10 /HPF (0-1) H Urine Squamous Epithelial Cells RARE /HPF (0-2) Urine Bacteria MANY /HPF (None Seen) MDM MDM: Differential diagnosis: Rationale: Tests considered and ordered secondary to shared decision making include: Previous outside records reviewed: Old ER visits. Risk of complication and/or morbidity or mortality of patient management: None Medications-Per medication reconciliation Need for hospitalization: Patient does not meet criteria for hospitalization. Need for emergency major/minor surgery: No There are no social concerns with this patient. Prescription drug management Prescriptions will include symptomatic care Patient's prior external medical records from other ER visits were reviewed by me as indicated. Prior testing and results from previous visits were reviewed. Prior tests were taken into account with medical decision making and resource utilization, independent historian/historians were used to obtain complete medical history. Patient's workup has been negative so far no signs of a urinary tract infection CBC is normal BNP is normal. Patient was given cathartics Mag citrate and lactulose. She has had a bowel movement and would like to go home. I will discharge her I independently interpreted the test that were performed, results were reviewed by me and considered findings on radiology if ordered. Medical management and examination interpretation discussions were had by me with other qualified healthcare professionals as indicated for the patient's care. ED Course Orders Procedure Category Date Status Time Cbc With Differential LAB 11/13/24 Complete 16:29 Urinalysis Profile LAB 11/13/24 Complete 16:29 Basic Metabolic Panel LAB 11/13/24 Complete 16:29 Culture Urine [place] 11/13/24 In Process 17:45 Magnesium Citrate PHA 11/13/24 Complete (Magnesium Citrate) 18:00 Lactulose 20 Gm/30 Ml PHA 11/13/24 Complete Udcup (Constulose 18:00 Current Medications Medications (Trade) Dose Ordered Sig/Dary Route PRN Reason Start Time Stop Time Status Last Admin Dose Admin Lactulose (Constulose 20gm/ 30ml Udcup) 20 gm ONCE ONCE PO 11/13/24 18:00 11/13/24 18:01 DC 11/13/24 18:06 Magnesium Citrate (Magnesium Citrate) 296 ml ONCE ONCE PO 11/13/24 18:00 11/13/24 18:01 DC 11/13/24 18:06 Vital Signs Date Time Temp Pulse Resp B/P (MAP) Pulse Ox O2 Delivery O2 Flow Rate FiO2 11/13/24 15:50 97.2 91 16 152/89 96 Room Air DX & DISP Disposition: Discharge Departure Impression: Primary Impression: Constipation Condition: Stable Additional Instructions: I recommend GoLYTELY every day for maintaining routine bowel movements and avoiding constipation. Please see your primary care physician if you need further workup for dysmotility. MIKE JUDD MD November 13, 2024 19:04 AJ ESTEVEZ MD November 13, 2024 20:23
--- NOTE | 2024-11-13 20:15 | NUR ---
PT STATES SHE WAS ABLE TO HAVE A LARGE BOWEL MOVEMENT AND IS NOW FEEKLING BETTER
[2024-11-13 20:25] VITALS: BP 144/59; PULSE 74; RESP 18; TEMP 97.5; O2SAT 95
== END 2024-11-13 20:27 | disposition home or self-care (01) ==
LOC: EDH 15:48
DX: K59.00 Constipation, unspecified (principal); E11.9 Type 2 diabetes mellitus without complications; I10 Essential (primary) hypertension; M19.90 Unspecified osteoarthritis, unspecified site; Z79.02 Long term (current) use of antithrombotics/antiplatelets; Z79.51 Long term (current) use of inhaled steroids; Z79.82 Long term (current) use of aspirin; Z79.899 Other long term (current) drug therapy; Z88.5 Allergy status to narcotic agent
CPT/HCPCS: 36415; 80048; 81001; 85025; 87086; 87186; 99283